=== PATIENT | male | born 1960 | race African-American/Black ===

== ENCOUNTER 2020-06-10 18:26 | Inpatient (IN) ==
[2020-06-10] MEDS ORDERED: HYDROmorphone 2 MG/1 ML VIAL IV STA (18:37)
[2020-06-10] MEDS ORDERED: ONDANSETRON 4 MG/2 ML VIAL IV ONE (18:37)
[2020-06-10] MEDS ORDERED: propofoL 200 MG/20 ML VIAL IV ONE (19:22)
[2020-06-10 19:52] LABS: Basophils # 0.1 10*3/uL (0.0-0.2); Basophils % 0.5 % (0.0-0.8); Hematocrit 39.1 VOL% (42.0-52.0); Hemoglobin 12.8 GM/DL (14.0-18.0); Immature Granulocytes % 0.5 %; Immature Granulocytes Absolute 0.05 #; Lymphocytes % 9.4 % (21.2-54.2); Mean Corpuscular HGB Conc 32.7 GM/DL (32-36); Mean Corpuscular Volume 92.7 FL (87-102); Mean Platelet Volume 9.9 FL (9.6-12.0); Neutrophils % 85.6 % (38.7-73.9); Platelet Count 282 T/CUMM (130-400); Red Blood Count 4.22 MC/CUMM (3.8-5.5); Red Cell Distribution Width 13.6 % (9.3-17.3); White Blood Count 10.4 T/CUMM (4-12)
[2020-06-10 20:10] LABS: PT Patient Result 11.3 SECS (9.8-11.9)
[2020-06-10 20:16] LABS: Albumin 3.5 G/DL (3.4-5.0); Bilirubin,Total 0.6 MG/DL (0.2-1.0); Calcium 8.9 MG/DL (8.5-10.1); Osmolality,Calculated 269.1 MOS/KG (273-304); Potassium 3.6 MMOL/L (3.5-5.1); Total Protein 7.7 G/DL (6.4-8.2)
[2020-06-10] MEDS ORDERED: HYDROmorphone 2 MG/1 ML VIAL IV PRN (23:27)
[2020-06-10] MEDS ORDERED: ACETAMINOPHEN 325 MG TABLET PO PRN (23:27)
[2020-06-10] MEDS ORDERED: PROMETHAZINE 25 MG/1 ML VIAL IM PRN (23:27)
[2020-06-10] MEDS ORDERED: ONDANSETRON 4 MG/2 ML VIAL IV PRN (23:27)
[2020-06-11] MEDS: LACTATED RINGERS 1,000 ML IV SCH ×2 (00:01→14:47)
[2020-06-11 06:09] LABS: Basophils # 0.1 10*3/uL (0.0-0.2); Basophils % 0.6 % (0.0-0.8); Eosinophils % 0.3 % (0.00-10.9); Hematocrit 35.6 VOL% (42.0-52.0); Hemoglobin 12.1 GM/DL (14.0-18.0); Immature Granulocytes % 0.3 %; Immature Granulocytes Absolute 0.03 #; Lymphocytes # 2.4 10*3/uL (1.4-4.0); Lymphocytes % 24.5 % (21.2-54.2); Mean Corpuscular Volume 90.6 FL (87-102); Monocytes % 9.1 % (1.7-12.7); Neutrophils % 65.2 % (38.7-73.9); Platelet Count 257 T/CUMM (130-400); Red Blood Count 3.93 MC/CUMM (3.8-5.5); Red Cell Distribution Width 13.8 % (9.3-17.3); White Blood Count 9.7 T/CUMM (4-12)
[2020-06-11 06:32] LABS: Calcium 8.5 MG/DL (8.5-10.1); Osmolality,Calculated 274.7 MOS/KG (273-304); Potassium 3.5 MMOL/L (3.5-5.1)
[2020-06-11] MEDS: PANTOPRAZOLE 40 MG TABLET PO SCH (08:19)
[2020-06-11] MEDS: ENOXAPARIN 40 MG/0.4 ML SYRINGE SUBCUT SCH (14:12)
[2020-06-12] MEDS: LACTATED RINGERS 1,000 ML IV SCH ×3 (03:02→18:40)
[2020-06-12] MEDS: PANTOPRAZOLE 40 MG TABLET PO SCH (09:30)
[2020-06-12] MEDS ORDERED: MAGNESIUM HYDROXIDE SUSP 30 ML UDCUP PO PRN (14:04)
[2020-06-12] MEDS: ENOXAPARIN 40 MG/0.4 ML SYRINGE SUBCUT SCH (14:15)
[2020-06-13] MEDS ORDERED: ceFAZolin 2,000 MG in PREMIX 1 EACH IV ONE (06:00)
[2020-06-13] MEDS ORDERED: LIDOCAINE 1%/EPI INJ 20 ML VIAL ONE (06:24)
[2020-06-13] MEDS ORDERED: BUPIVACAINE MPF 0.25% 30 ML VIAL ONE (06:24)
[2020-06-13] MEDS ORDERED: TISSUE ADHESIVE 1 EACH APPLICATOR TOP ONE (06:24)
[2020-06-13] MEDS ORDERED: ROCURONIUM 50 MG/5 ML VIAL IV ONE (06:38)
[2020-06-13] MEDS ORDERED: fentaNYL 100 MCG/2 ML VIAL ONE (06:38)
[2020-06-13] MEDS ORDERED: propofoL 200 MG/20 ML VIAL IV ONE (06:38)
[2020-06-13] MEDS ORDERED: DEXAMETHASONE 4 MG/1 ML VIAL ONE ×2 (06:38→06:45)
[2020-06-13] MEDS ORDERED: LIDOCAINE 2% 5 ML VIAL ONE ×2 (06:38→07:54)
[2020-06-13] MEDS ORDERED: ONDANSETRON 4 MG/2 ML VIAL ONE (06:38)
[2020-06-13] MEDS ORDERED: KETOROLAC 30 MG/1 ML VIAL ONE (06:38)
[2020-06-13] MEDS ORDERED: MIDAZOLAM 2 MG/2 ML VIAL ONE (06:39)
[2020-06-13] MEDS ORDERED: ROPIVACAINE 0.5% 30 ML VIAL ONE (06:45)
[2020-06-13] MEDS ORDERED: ACETAMINOPHEN INJ 1,000 MG/100 ML VIAL IV ONE (07:35)
[2020-06-13] MEDS ORDERED: SEVOFLURANE 1 UNIT/15 MINUTE INH ONE ×7 (07:36→09:35)
[2020-06-13] MEDS ORDERED: PHENYLEPHRINE 1 MG/10 ML SYRINGE IV ONE ×2 (07:36→07:54)
[2020-06-13] MEDS ORDERED: ePHEDrine 50 MG/ML VIAL ONE (07:46)
[2020-06-13] MEDS ORDERED: LACTATED RINGERS 1,000 ML IV ONE (08:34)
[2020-06-13] MEDS ORDERED: GLYCOPYRROLATE 0.4 MG/2 ML VIAL ONE (08:39)
[2020-06-13] MEDS ORDERED: NEOSTIGMINE 10 MG/10 ML VIAL ONE (08:39)
[2020-06-13] MEDS: PANTOPRAZOLE 40 MG TABLET PO SCH (09:05)
[2020-06-13] MEDS: LACTATED RINGERS 1,000 ML IV SCH ×2 (10:15→11:42)
[2020-06-13] MEDS: ENOXAPARIN 40 MG/0.4 ML SYRINGE SUBCUT SCH (14:03)
[2020-06-13 15:42] VITALS: BP 115/72
== END 2020-06-13 16:00 | disposition home or self-care (01) | DRG 355 ==
LOC: N.ED 18:26 → N.EDINP 19:40 → N.3E 23:24
PROVIDERS: ADMIT Surgery; ATTEND Surgery